=== PATIENT | female | born 1995 | race African-American/Black ===

== ENCOUNTER 2018-11-28 19:56 | Emergency (ER) | payer SELFPAY ==
[~2018-11-28] VITALS: Ht 160 cm; Wt 57.0 kg
[2018-11-28 20:01] VITALS: BP 128/82
== END 2018-11-29 01:12 | disposition left against medical advice (07) ==
LOC: ER 19:56
DX: Z53.21 Procedure and treatment not carried out due to patient leaving prior to being seen by health care provider (principal)